=== PATIENT | male | born 1955 | race Caucasian/White ===

== ENCOUNTER 2017-10-14 08:00 | Day surgery (SDC) | payer BC ==
[~2017-10-14 08:00] MED LIST: BACITRACIN 50,000 UNIT in IV NORMAL SALINE 500ML BAG 500 ML IRR ONE; CARI350T PO; HYDR1TAB10 PO; HYDROmorphone 2 MG/ML VIAL IV PRN; IV RINGERS,LACTATED 1000ML 1,000 ML IV SCH; LIDOCAINE 1% PF 2 ML VIAL. ID PRN; LOSA1TAB25 PO; MORPHINE SULFATE 4 MG/ML DISP.SYRIN. IV PRN; NAPR220T70 PO; ONDANSETRON PF 4 MG/2 ML VIAL. IV PRN; PROCHLORPERAZINE 10 MG/2 ML VIAL. IV PRN; SULF500T7 PO; fentaNYL PF VIAL 100 MCG/2 ML VIAL IV PRN
[2017-10-14] MEDS ORDERED: PROPOFOL 20 ML IV ONE (08:12)
[2017-10-14] MEDS ORDERED: fentaNYL PF VIAL 100 MCG/2 ML VIAL ONE ×2 (08:12→10:32)
[2017-10-14] MEDS ORDERED: ONDANSETRON PF 4 MG/2 ML VIAL. ONE (08:12)
[2017-10-14] MEDS ORDERED: DEXAMETHASONE SOD PHOS 20 MG/5 ML VIAL. ONE (08:12)
[2017-10-14] MEDS ORDERED: LIDOCAINE 2% PF Vial for OR 5 ML VIAL. ONE (08:12)
[2017-10-14] MEDS ORDERED: GABA-586 PO (08:26)
[2017-10-14] MEDS ORDERED: MULT1TAB52 PO (08:27)
[2017-10-14] MEDS ORDERED: BUPIVAC MPF-EPI 0.5%-1:200000 30 ML VIAL. ONE (09:11)
[2017-10-14] MEDS ORDERED: GLYCOPYRROLATE 1 MG/5 ML VIAL. ONE (09:45)
[2017-10-14] MEDS ORDERED: SEVOFLURANE 61 TO 120 MINUTES. IH ONE (10:02)
--- NOTE | 2017-10-14 10:33 | PDOC4 ---
Operative Note Operative Note Operative Note: Preoperative Diagnosis: Right inguinal hernia Postoperative Diagnosis: Same Procedure: Right inguinal hernia repair with mesh Surgeon: Anibal Anesthesia: Gen. EBL: 10 mL Specimen: None Drains: None Complications: None Indication: The patient is a 62-year-old male who was referred due to a reducible right angle hernia. He was offered surgical treatment. The details of surgery were discussed including the use of mesh. The risks were also discussed which include bleeding, infection, recurrence, pain, potential need for additional surgery or procedure. He also is aware of the increased risk of recurrence associated with tobacco use. He understands and would like to proceed. Description: The patient was taken to the operating room and placed supine on the operating table. Gen. anesthesia was performed. The right groin was shaved and prepped with ChloraPrep and draped in a standard surgical manner. An incision was made in the skin lines of the right groin with a scalpel. Cautery dissection was carried down the external oblique aponeurosis. The aponeurosis was opened down to the external ring. The contents of the inguinal canal were digitally mobilized and encircled with a [place] drain. The patient had a moderate sized indirect hernia sac present. The inguinal floor was intact. The indirect hernia sac was mobilized away from the cord structures. The vas deferens and other structures were identified and preserved. The hernia sac was fully reduced and the defect filled with a large Phasix plug. The plug was sutured into position with 2-0 Vicryl. The entire inguinal floor was then reinforced with a Prolene mesh. This was also sutured in position with 2-0 Vicryl. The mesh was sutured inferiorly to the shelving edge of the inguinal ligament while superiorly it was anchored to the internal oblique muscle and aponeurosis. A slit was made to accommodate the cord structures. Upon completion the mesh rested well providing full coverage of the inguinal floor and the plug remained intact deep to it. The external oblique was closed over the mesh with a running 2-0 Vicryl. The subcutaneous tissue was closed with 3-0 Vicryl. The skin was closed with a 4-0 Monocryl suture. The incision was infiltrated with half percent Marcaine with epinephrine. Steri-Strips and a sterile dressing were applied. The patient tolerated the procedure well and was sent to the recovery room in stable condition. At the end of the case all counts were correct. MISAEL MCCRACKEN MD Oct 14, 2017 10:33
--- NOTE | 2017-10-14 10:35 | DISCH ---
DISCHARGE INSTRUCTIONS Condition on Discharge Condition on Discharge: Stable Activity After Discharge Activity Instructions for Disc: Other, see below (no lifting over 20 lbs) Diet after Discharge Diet after Discharge: Regular Wound Incision Care Wound/Incision Care: Other, see below (keep dressing clean and dry X 72 hours, may then remove and shower) Follow-Up Follow up with: Dr Mccracken in 2 weeks in office, call for appointment, [phone] MISAEL MCCRACKEN MD Oct 14, 2017 10:35
[2017-10-14] MEDS ORDERED: OXYC-323 PO (10:40)
[2017-10-14] MEDS ORDERED: oxyCODONE/APAP 5/325 1 TAB TABLET ONE (10:52)
[2017-10-14] MEDS ORDERED: oxyCODONE/APAP 5/325 1 TAB TABLET PO PRN (11:00)
[2017-10-14 11:20] VITALS: BP 110/67
== END 2017-10-14 11:50 | disposition home or self-care (01) ==
LOC: SURG 08:00
PROVIDERS: ATTEND Surgery
DX: K40.90 Unilateral inguinal hernia, without obstruction or gangrene, not specified as recurrent (principal); I10 Essential (primary) hypertension; F32.9 Major depressive disorder, single episode, unspecified; F17.200 Nicotine dependence, unspecified, uncomplicated; Z86.69 Personal history of other diseases of the nervous system and sense organs; Z98.890 Other specified postprocedural states; Z87.39 Personal history of other diseases of the musculoskeletal system and connective tissue; Z87.442 Personal history of urinary calculi; Z72.0 Tobacco use; Z88.0 Allergy status to penicillin; Z91.041 Radiographic dye allergy status
CPT/HCPCS: 49505; C1769; C1781; J1100; J1956; J2405; J2704; J3010; J3490; J7040; J7120; J2001